=== PATIENT | female | born 1990 ===

== ENCOUNTER 2016-11-08 15:41 | Inpatient (IN) | payer MEDICAID, SELFPAY ==
[2016-11-08 16:25] VITALS: BMI 31.7
[2016-11-08] MEDS ORDERED: Lactated Ringer's 1,000 ML IV SCH (16:25)
--- NOTE | 2016-11-08 16:47 | OBHP ---
Datetime: 11/08/2016 16:27 IP Adm Impression: Term, intrauterine IP Admit Plan: Admit to unit Admit Comment, IP Provider: I saw and examined the patient and reviewed the record in ecw. 26 y/o at 40wks EDC 11/08/16 by LMP 02/02/16 c/w 1st TM u/s. Patient presents with contractio ns since 5 am, progressively stronger and more frequent. Passed mucus plug, blood tinged. +fm, no lof , no vb. PNC: [facility], Cathy Gutierrez, Dictaphone Transcriber, 12 pnv, bp range 100-110/60-72. Weight ga in 43 lbs. PNI: 1. hx of +ppd, cxr showed small granuloma but no active disease 2. anemia: takes iron daily H/H: 10.9/32.1 on Oct 30 3. chlamydia + in early , ANNAMARIA neg x 2 and ng in 3rd TM labs PNL: Plt 291, hg electrophoresis wnl, GCT 66, HIV neg, RPR neg, RI, hbsag neg, GC/chla neg, GBS ne g, ucx neg, O rh+ u/s: 04/26/16: size=dates EDC 11/08/16, FTS done, screen neg 06/21/16: anatomy scan wnl of visualized structures 06/28/16: f/u anatomy normal kidneys/spine 08/30/16: growth 30w0d efw 54%, ant placenta, cephalic, normal FINN POBHX: 2009 7#0 male, no complications, [facility] PGYNhx: denies abn pap, denies STI except Chlamydia, denies HSV Pmhx: +ppd, no active TB, denies pysch hx Pshx: denies All: denies Meds: PNV, iron Social hx: denies toxic habits x 3, denies DV see flowsheet and exam above A/P: 26y/o at 40wks here in early active labor 1. Admit to L_D, NPO, IVF, check labs, CBC, T_S, RPR 2. Fetus: category 1 tracing, cont monitoring, EFW 3800g 3. Labor: cont expectant management, reassess, fetus vertex by bedside u/s, pelvis adequate, antic ipate . Fetus is larger than last baby and patient gained 43 lbs. 4. GBS neg 5. Patient declined epidural, reports she didn't have it last delivery and would rather not get it . 6. Case d/w Dr. Keenan Pelvic Type - PN: Adequate Extremities - PN: Normal Abdomen - PN: Normal Back - PN: Normal Breast - PN: Normal Lungs - PN: Normal Heart - PN: Normal Thyroid - PN: Normal Neurologic - PN: Normal HEENT - PN: Normal General - PN: Normal Weight - Estimated: 3800 Presentation-Admit: Vertex FHR - Baseline A Provider: 140 Membranes, Provider: Intact Contraction Comments Provider: q3 min IP Hx Assessment: The History has been Reviewed and is Current Vital Signs Provider: Reviewed IP Chief Complaint: Uterine contractions NICHD Variability Prov Fetus A: Moderate 6-25bpm NICHD Accel Fetus A IP Provider: 15X15 FHR Category Provider Fetus A: Category I NICHD Decel Fetus A IP Provider: None Dilatation, Provider: 4 Effacement, Provider: 80 Station, Provider: -3 Genitourinary Exam: Normal DTRs - PN: Normal
[2016-11-08 16:53] VITALS: RESP 18
[2016-11-08 18:37] LABS: BASO % 0.2 % (0.0-2.0); EOS # 0.2 K/uL (0.0-0.7); EOS % 1.2 % (0.0-4.0); HEMATOCRIT 34.9 % (34.0-47.0); LYMPH # 2.8 K/uL (1.0-4.3); LYMPH % 17.3 % (20.0-40.0); MEAN CELL VOLUME 85.3 fl (81.0-99.0); MEAN CORPUSCULAR HEMOGLOBIN 28.2 pg (27.0-31.0); MEAN PLATELET VOLUME 8.6 fl (7.2-11.7); MONO % 6.3 % (0.0-10.0); NEUT # 11.9 K/uL (1.8-7.0); RED CELL DISTRIBUTION WIDTH 15.3 % (11.5-14.5); WHITE BLOOD COUNT 15.9 K/uL (4.8-10.8)
[2016-11-08] MEDS ORDERED: Oxytocin 10 Units/ml Inj ONE (19:14)
[2016-11-08] MEDS ORDERED: Oxytocin 30 units/LR 500ML 30 U/500 ML BAG IV ONE (19:14)
[2016-11-08] MEDS ORDERED: Lidocaine 1% Inj (20ml) ONE (19:15)
[2016-11-08] MEDS ORDERED: Oxycodone/Acetaminophen 5/325 mg Tab PO PRN (21:31)
--- NOTE | 2016-11-09 00:35 | OBADHP ---
Datetime: 11/08/2016 16:27 Admit Comment, IP Provider: I saw and examined the patient and reviewed the record in ecw. 26 y/o at 40wks EDC 11/08/16 by LMP 02/02/16 c/w 1st TM u/s. Patient presents with contractio ns since 5 am, progressively stronger and more frequent. Passed mucus plug, blood tinged. +fm, no lof , no vb. PNC: [facility], Cathy Gutierrez, Plastic Roller, 12 pnv, bp range 100-110/60-72. Weight ga in 43 lbs. PNI: 1. hx of +ppd, cxr showed small granuloma but no active disease 2. anemia: takes iron daily H/H: 10.9/32.1 on Oct 30 3. chlamydia + in early , ANNAMARIA neg x 2 and ng in 3rd TM labs PNL: Plt 291, hg electrophoresis wnl, GCT 66, HIV neg, RPR neg, RI, hbsag neg, GC/chla neg, GBS ne g, ucx neg, O rh+ u/s: 04/26/16: size=dates EDC 11/08/16, FTS done, screen neg 06/21/16: anatomy scan wnl of visualized structures 06/28/16: f/u anatomy normal kidneys/spine 08/30/16: growth 30w0d efw 54%, ant placenta, cephalic, normal FINN POBHX: 2009 7#0 male, no complications, [facility] PGYNhx: denies abn pap, denies STI except Chlamydia, denies HSV Pmhx: +ppd, no active TB, denies pysch hx Pshx: denies All: denies Meds: PNV, iron Social hx: denies toxic habits x 3, denies DV see flowsheet and exam above A/P: 26y/o at 40wks here in early active labor 1. Admit to L_D, NPO, IVF, check labs, CBC, T_S, RPR 2. Fetus: category 1 tracing, cont monitoring, EFW 3800g 3. Labor: cont expectant management, reassess, fetus vertex by bedside u/s, pelvis adequate, antic ipate . Fetus is larger than last baby and patient gained 43 lbs. 4. GBS neg 5. Patient declined epidural, reports she didn't have it last delivery and would rather not get it . 6. Case d/w Dr. Keenan Pelvic Type - PN: Adequate Extremities - PN: Normal Abdomen - PN: Normal Back - PN: Normal Breast - PN: Normal Lungs - PN: Normal Heart - PN: Normal Thyroid - PN: Normal Neurologic - PN: Normal HEENT - PN: Normal General - PN: Normal Weight - Estimated: 3800 Presentation-Admit: Vertex FHR - Baseline A Provider: 140 Membranes, Provider: Intact Contraction Comments Provider: q3 min IP Hx Assessment: The History has been Reviewed and is Current Vital Signs Provider: Reviewed IP Chief Complaint: Uterine contractions NICHD Variability Prov Fetus A: Moderate 6-25bpm NICHD Accel Fetus A IP Provider: [id number] FHR Category Provider Fetus A: Category I NICHD Decel Fetus A IP Provider: None Dilatation, Provider: 4 Effacement, Provider: 80 Station, Provider: -3 Genitourinary Exam: Normal DTRs - PN: Normal IP Adm Impression: Term, intrauterine IP Admit Plan: Admit to unit
--- NOTE | 2016-11-09 00:39 | OBDS ---
DELIVERY PERSONNEL Delivery Doctor: Drake Keenan MD MATERNAL INFORMATION Delivery Anesthesia: None Medications in Delivery: 30 units pitocin in 500 ml lr Estimated Blood Loss (ml): 200 Placenta Cultured: No Maternal Complications: None Provider Comments: Over intact perineum, of live female at 19:15, Weight 3390gm, 9/9 APG AR. Right Anterior shoulder was delivered first after head delivered in a controlled manner followed by posterior arm and body. was bulb suctioned nasopharygeally and crying spontaneously. umbili fabiola cord was cut. Skin to skin was done with mother. Placenta was delivered intact spontaneously. No lacerations noted. EBL 200ml. patient and baby remained stable --- Sridhar Monreal, PGY-1 Addendum: I was in room during delivery. I delivered and placenta. Agree with noted above. No complic ations. Jonathannanette LABOR SUMMARY EDC: 11/08/2016 00:00 No. Babies in Womb: 1 Attempted: No Labor Anesthesia: None LABOR INFORMATION Reason for Induction: Not Applicable Onset of Labor: 11/08/2016 16:45 Complete Dilatation: 11/08/2016 19:10 Oxytocin: N/A Group B Beta Strep: Negative Steroids Given: None Reason Steroids Not Administered: Not Applicable MEMBRANES Membranes Rupture Method: Artificial Rupture of Membranes: 11/08/2016 17:14 Length of Rupture (hrs): 0.02 Amniotic Fluid Color: Clear Amniotic Fluid Amount: Moderate Amniotic Fluid Odor: Normal STAGES OF LABOR Stage 1 hrs: 2 Stage 1 min: 25 Stage 2 hrs: -1 Stage 2 min: -55 Stage 3 hrs: 0 Stage 3 min: 2 Total Time in Labor hrs: 0 Total Time in Labor min: 32 VAGINAL DELIVERY Episiotomy: None Laceration Extension: N/A Laceration Type: None Laceration Repair: Not Applicable Initial Vag Sponge Count: 5 Final Vag Sponge Count: 5 Initial Vag Sharps Count: 0 Final Vag Sharps Count: 0 Sponge Count Correct: Yes Sharps Count Correct: Yes BABY A INFORMATION Delivery Date/Time: 11/08/2016 17:15 Method of Delivery: Vaginal Born in Route : No : N/A Forceps: N/A Vacuum Extraction: N/A Shoulder Dystocia : No SHOULDER DYSTOCIA BABY A Delivery Date/Time: 11/08/2016 17:15 PRESENTATION/POSITION BABY A Presentation: Cephalic Cephalic Presentation: Vertex Breech Presentation: N/A PLACENTA INFORMATION BABY A Placenta Delivery Time : 11/08/2016 17:17 Placenta Method of Delivery: Spontaneous Placenta Status: Delivered SCORES BABY A Heart Rate 1 min: >100 bpm Resp Effort 1 min: Good Cry Reflex Irritability 1 min: Cough or Sneeze or Pulls Away Muscle Tone 1 min: Active Motion Color 1 min: Body [place], Extremities Blue Resuscitation Effort 1 min: N/A SCORE 1 MIN: 9 Heart Rate 5 min: >100 bpm Resp Effort 5 min: Good Cry Reflex Irritability 5 min: Cough or Sneeze or Pulls Away Muscle Tone 5 min: Active Motion Color 5 min: Body [place], Extremities Blue Resuscitation Effort 5 min: N/A SCORE 5 MIN: 9 INFANT INFORMATION BABY A Gestational Age at Delivery: 40.0 Gestational Status: Term Infant Outcome : Liveborn Condition : Stable Sex: Female IDENTIFICATION/MEDS BABY A ID Band Number: [id number] ID Band Location: Left Leg; Left Arm WEIGHT/LENGTH BABY A Birthweight (gms): 3390 Infant Weight (lb): 7 Weight (oz): 8 CORD INFORMATION BABY A No. Cord Vessels: 3 Nuchal Cord : N/A Cord Blood Taken: No Infant Suction: Mouth; Nose ASSESSMENT BABY A Complications: None Physical Findings at Delivery: Within Normal Limits Infant Respirations: Appears Normal Transmission Mechanic/ALS Called : No Infant Care By: Portia Guy Transferred To: Remains with Mother
[2016-11-09 07:00] LABS: HEMATOCRIT 32.5 % (34.0-47.0); MEAN CELL VOLUME 85.1 fl (81.0-99.0); MEAN CORPUSCULAR HEMOGLOBIN 28.2 pg (27.0-31.0); MEAN CORPUSCULAR HGB CONC 33.2 g/dL (33.0-37.0); RED CELL DISTRIBUTION WIDTH 15.4 % (11.5-14.5); WHITE BLOOD COUNT 18.8 K/uL (4.8-10.8)
--- NOTE | 2016-11-09 13:53 | OBPPN ---
Datetime: 11/09/2016 06:19 PP Pain Prov: Within normal limits PP Nausea Prov: Denies PP Flatus Prov: No PP BM Prov: No PP Breasts Prov: Not Done PP Heart Prov: Normal PP Lungs Prov: Normal PP Abdomen/Uterus Prov: Normal PP Lochia Prov: Normal PP Vulva/Perineum Prov: Not Done PP CVA Tenderness Prov: Normal PP Extremities Prov: Normal PP C/S Incision Prov: Not Applicable PP Progress Prov: Normal PP Impression Prov: Normal progression PP Plan Prov: Continue present management PP Progress Note Prov: S: 26 yo s/p NVD on 11/08/16 at 19:15. Pt. is seen and examined at [facility] e this AM. No overnight events. Pt reports occasional abdominal pain, but well controlled with pain m eds. Pt is ambulating without any difficulties. Breast feeding baby. Tolerating PO diet. Lochia is si milar to light menses in volume. Voiding freely, No Bowel movement, yet to pass gas per rectum. Denie s fever/chills, diarrhea, nausea/vomiting, chest pain, dyspnea, and dizziness. Of note, O: VS: stable GEN: NAD Cardio: s1s2, no M/G/R Resp: clear breath sounds b/l Abdomen: BS+, NT, Uterus is firm and at the level of the umbilicus. EXT: No edema, calves nontender NEURO/PSYCHI: AAOx3, no grossly focal deficit, preserved affect and mood. Assessment/Plan: 26 yo s/p NVD on 11/08/16 at 17:15.. Pt remains afebrile, tolerating pain wit h medication, tolerating PO intake, doing well on PPD1. OOB with caution pt ambulating Ibuprofen 600mg for pain. Colace 100mg PO BID for constipation Encourage and ambulating F/u CBC post-delivery: pending --- Sridhar Monreal, PGY-1 The patient was seen with the resident I agree with note IP PP Procedures: None
--- NOTE | 2016-11-10 15:03 | OBPPN ---
Datetime: 11/10/2016 06:23 PP Pain Prov: Within normal limits PP Nausea Prov: Denies PP Flatus Prov: Yes PP BM Prov: No PP Breasts Prov: Normal PP Heart Prov: Normal PP Lungs Prov: Normal PP Abdomen/Uterus Prov: Normal PP Lochia Prov: Normal PP Vulva/Perineum Prov: Not Done PP CVA Tenderness Prov: Normal PP Extremities Prov: Normal PP C/S Incision Prov: Not Applicable PP Progress Prov: Normal PP Comments Phys Exam Prov: no bowel movement but pt states that this is normal for her and she pref ers to relieve herself in her own home. PP Impression Prov: Normal progression PP Plan Prov: Discharge PP Progress Note Prov: S: 26 yo s/p NVD on 11/08/16 at 19:15. Pt. is seen and examined at [facility] this AM. No overnight events. Pt reports occasional abdominal pain, but well controlled with pain m eds. Pt is ambulating without any difficulties. Breast feeding baby. Tolerating PO diet. Lochia is si milar to light menses in volume. Voiding freely, No Bowel movement, yet to pass gas per rectum. Denie s fever/chills, diarrhea, nausea/vomiting, chest pain, dyspnea, and dizziness. O: VS: stable GEN: NAD Cardio: s1s2, no M/G/R Resp: clear breath sounds b/l Abdomen: BS+, NT, Uterus is firm and at the level of the umbilicus. EXT: No edema, calves nontender NEURO/PSYCHI: AAOx3, no grossly focal deficit, preserved affect and mood. Assessment/Plan: 26 yo s/p NVD on 11/08/16 at 17:15. Pt remains afebrile, tolerating pain with medication, tolerating PO intake, doing well on PPD2. OOB with caution pt ambulating Ibuprofen 600mg for pain. Colace 100mg PO BID for constipation Encourage and ambulating F/u CBC post-delivery: 10.8/32.5 --- Sridhar Monreal, PGY-1 Obh: Patient seen and examined. Agree with assessment and plan IP PP Procedures: None
--- NOTE | 2016-11-10 15:05 | OBDCSUM ---
Datetime: 11/10/2016 06:25 Discharged to, Provider: Home Follow up at, Provider: [facility] Disch Instr Activity: Normal activity Disch Instr Diet: Regular Discharge Instructions, Provider: Routine instructions given Discharge Diagnosis, Provider: Term Delivered Discharge Time: 11/10/2016 10:00 Follow up in weeks, Provider: 4-6 weeks post Disch Referrals: None Contraception discussed, Prov: Yes Disch Activity Restrictions: No sexual activity; Nothing in vagina - [place], tampons, douche Discharge Comment, Provider: DOA: 11/08/16 EGA: 40.0 Diagnosis: NVD Term PRisk factors: none summary of : 26 yo F L_D summary DOL: 11/08/16 at 17:15 NVD NB: F : 11/10 Weight: 3390g PP summary No serious complications during PP. Lochia= menses, mild pain, controlled with medications Rubella immune, Tdap 08/28/16 Blood type: O+ CBC pp: 10.8/32.5 Discharge Date: 11/10/16 Time 10:00 AM Discharge Instructions: -encourage -Ibuprofen for pain PRN -Colace for constipation -Ambulate as tolerated -f/u NB visit and PP visit --- Sridhar Monreal, PGY-1
[2016-11-11 01:11] VITALS: BP 100/64; PULSE 71; TEMP 98.3; O2SAT 100
== END 2016-11-10 15:40 | disposition home or self-care (01) | DRG 775 ==
LOC: H.EROB2 15:41 → H.EROB 15:53 → UNDOADMIN 16:25 → H.L&D 16:25 → H.EROB2 16:33 → H.L&D 16:36 → H.OB/GYN 21:49
PROVIDERS: ADMIT Obstetrics & Gynecology; ATTEND Obstetrics & Gynecology
PROC: 10E0XZZ Delivery of Products of Conception, External Approach (ICD-10-PCS; principal; 2016-11-08)
PROC: 4A1HXCZ Monitoring of Products of Conception, Cardiac Rate, External Approach (ICD-10-PCS; 2016-11-08)
DX: O80 Encounter for full-term uncomplicated delivery (principal); K59.00 Constipation, unspecified; Z37.0 Single live birth; Z3A.40 40 weeks gestation of pregnancy